=== PATIENT | male | born 1935 | race African-American/Black ===

== ENCOUNTER → 2016-09-15 | Day surgery (SDC) | payer MEDICARE ==
--- NOTE | 2016-09-14 12:44 | SC.ANESEVA ---
Anesthesia Eval & Plan ([facility]) - Medications/Allergies Allergies: Allergies No Known Allergies Allergy (Verified 08/05/16 08:24) Current Medication List: Reviewed - Focused Physical Exam NPO since: Since after Midnight Mallampati: Class I Thyromental Distance: Greater than 3 Neck: Full Range of Motion Dental: Normal - no significant findings Cardiovascular/Chest: Normal (RRR no mumurs or rubs.) Respiratory: Lungs clear. negative: Wheezing Any problems with anesthesia, including nausea and vomiting?: No Any relatives with a history of Malignant Hyperthermia?: No Other: Diagnoses UNSPECIFIED DISORDER OF CIRCULATORY SYSTEM (09/15/16) Allergies Allergy/AdvReac Type Severity Reaction Status Date / Time No Known Allergies Allergy Verified 08/05/16 08:24 Home Medications Medication Instructions Recorded Last Taken Type Phenazopyridine [Pyridium] 100 mg PO TID #14 tab 08/05/16 Unknown Rx Tamsulosin HCl [Flomax] 0.4 mg PO QAM #30 cap 08/05/16 Unknown Rx Height and Weight Patient's height 5 ft 10 in Patient's weight 81.647 kg BMI 25.8 - Anesthetic Plan Anesthesia Type: MAC ASA Class: 3 - Focused Review of Systems Smoking Status: Never smoker
[2016-09-14 13:07] VITALS: BMI 21.1
[~2016-09-15] MED LIST: BUPIVACAINE 0.25%-EPINEPHRINE 1:200,000 30 ML INF ONE; DEXAMETHASONE 4 MG/ML VIAL IV PRN; DIAZEPAM 5 MG TAB PO PRN; FENTANYL 100 MCG/2 ML VIAL IV PRN; FENTANYL 100 MCG/2 ML VIAL ONE; HYDROCODONE 5 MG/ACETAMIN 325 MG TAB PO PRN; KETOROLAC TROMETH 30 MG/ML VIAL IV PRN; KETOROLAC TROMETH 30 MG/ML VIAL ONE; LABETALOL 20 MG/4 ML SYRINGE IV ONE; LABETALOL 20 MG/4 ML SYRINGE IV PRN; LIDOCAINE 1% 30 ML VIAL (PRESERVATIVE FREE) INF ONE; LR 1,000 ML IV ONE; LR 1,000 ML IV SCH; MIDAZOLAM 2 MG/2 ML VIAL ONE; NS 1,000 ML IV SCH; NS 250 ML IV SCH; ONDANSETRON HCL 4 MG/2 ML VIAL IV PRN; PROPOFOL 200 MG/20 ML VIAL IV ONE; SCOPOLAMINE TRANSDERMAL PATCH TOP PRN; hydrALAZINE 20 MG/ML VIAL IV PRN
[2016-09-15 13:02] VITALS: TEMP 96.7
--- NOTE | 2016-09-15 14:15 | SC.ANESPOS ---
Post-Anesthesia Note LOC: Fully Awake Post-Anesthesia Assessment: Awake, Returned to Baseline, Hemodynamically Stable , Pain Control Adequate Phase I & II Recovery Complete: Yes Apparent Anesthesia Complication: No : N - Vital Signs Blood Pressure: 144/74 Pulse: 96 Resp Rate: 22 O2 Sat: 97 Temp: 96.7 F
[2016-09-15 14:56] VITALS: BP 135/65; PULSE 89
--- NOTE | 2016-09-15 17:40 | HIMOPRPT ---
DATE OF PROCEDURE: 09/15/16 PREOPERATIVE DIAGNOSIS: Poor venous access, need for central venous access for chemo for pancreatic cancer. POSTOPERATIVE DIAGNOSIS: Same. PROCEDURE: Placement of Lt jugular vein Port-A-Cath with fluoroscopic control and u/s guidance. SURGEON: Darrell Petersen MD THEATER TEACHER: None ANESTHESIA: Moderate IV sedation with local anesthesia. ESTIMATED BLOOD LOSS: Minimal COMPLICATIONS: None noted. ANTIBIOTICS: Preoperative antibiotics given. INDICATIONS: KAYCEE THAKKAR is a 81 year-old M patient. He has pancreatic cancer and needs access for chemo. Consent had been obtained and he was brought for the above-mentioned procedure. PROCEDURE IN DETAIL: The patient was brought to the operating room and placed on the operating room table in supine position. After appropriate time-out, an adequate moderate IV sedation, allowing the prep to dry, we went ahead and anesthetized the left infraclavicular region and neck with local anesthetic. Then, a large-bore needle was placed into the jugular vein. Good blood return was obtained. Guidewire was placed. This went easily. A subcutaneous pocket was created and a catheter was tunneled between the two, then over the guidewire, a dilator and sheath were placed. The guidewire and dilator were removed. Catheter was placed through the sheath. Sheath was removed. Catheter was positioned in the atriocaval junction, cut to size, hooked to the reservoir, sutured down the chest wall. Wound was irrigated, suctioned dry. Hemostasis assured and the wound was closed with 3-0 Vicryl suture and 4-0 Monocryl. Dermabond tissue adhesive was applied and allowed to dry and the port was accessed and flushing through without any problems. The patient was awoken, taken to recovery room in excellent condition with correct sponge counts, needle counts.
== END ==
LOC: CPSC 12:01
PROVIDERS: ATTEND Surgery
PROC: 05HN33Z Insertion of Infusion Device into Left Internal Jugular Vein, Percutaneous Approach (ICD-10-PCS; 2016-09-15)
PROC: B544ZZA Ultrasonography of Left Jugular Veins, Guidance (ICD-10-PCS; 2016-09-15)
PROC: 0JH63XZ Insertion of Tunneled Vascular Access Device into Chest Subcutaneous Tissue and Fascia, Percutaneous Approach (ICD-10-PCS; principal; 2016-09-15 13:00)
DX: C25.9 Malignant neoplasm of pancreas, unspecified (principal); I99.9 Unspecified disorder of circulatory system; Z79.899 Other long term (current) drug therapy; Z87.891 Personal history of nicotine dependence; I10 Essential (primary) hypertension
CPT/HCPCS: 36563; C1788; J1644; J1885; J2001; J2250; J2704; J3010; J3490